=== PATIENT | female | born 1935 | race Caucasian/White ===

== ENCOUNTER 2020-12-07 13:52 | Outpatient (CLI) | payer MEDICARE | END 2020-12-07 23:59 | disposition home or self-care (01) | LOC: ROC 13:52 | PROVIDERS: ATTEND Radiology Radiation Oncology | DX: C41.2 Malignant neoplasm of vertebral column (principal) | CPT/HCPCS: G0463 ==

== ENCOUNTER → 2020-12-12 | Outpatient (CLI) | payer MEDICARE | END | disposition home or self-care (01) | LOC: ROC 08:26 | PROVIDERS: ATTEND Radiology Radiation Oncology | DX: Z08 Encounter for follow-up examination after completed treatment for malignant neoplasm (principal); C41.2 Malignant neoplasm of vertebral column | CPT/HCPCS: G0463 ==

== ENCOUNTER 2021-01-25 08:01 | Outpatient (CLI) | payer MEDICARE | END 2021-01-25 23:59 | disposition home or self-care (01) | LOC: ROC 08:01 | PROVIDERS: ATTEND Radiology Radiation Oncology | DX: Z08 Encounter for follow-up examination after completed treatment for malignant neoplasm (principal); C41.2 Malignant neoplasm of vertebral column | CPT/HCPCS: G0463 ==

== ENCOUNTER 2021-02-21 07:39 | Outpatient (CLI) | payer MEDICARE | END 2021-02-21 23:59 | disposition home or self-care (01) | LOC: ROC 07:39 | PROVIDERS: ATTEND Radiology Radiation Oncology | DX: Z08 Encounter for follow-up examination after completed treatment for malignant neoplasm (principal); C41.2 Malignant neoplasm of vertebral column | CPT/HCPCS: G0463 ==